=== PATIENT | female | born 1965 | race American Indian/Alaskan Native ===

== ENCOUNTER → 2017-09-17 | Day surgery (SDC) | payer MEDICARE, OTHER ==
[2014-11-13 10:38] VITALS: BMI 25.8
[~2017-09-17] MED LIST: Bacitracin Ointment 30 GM TUBE ONE; Bupivacaine 0.5% Inj(30mL) ONE; Dexamethasone 4 mg/1 ml ONE; EPINEPHrine 1:1000 Nasal Sol(30mL) ONE; Lactated Ringer's 1,000 ML IV ONE; Lidocaine 1% Inj (20ml) ONE; MethylPREDNISolone Depo 40 mg/ml Inj ONE; Midazolam 2 MG/2 ML VIAL ONE; Morphine 1 mg/ml preservative-free Inj(Duramorph) ONE; Oxycodone/Acetaminophen 5/325 mg Tab PO PRN; Propofol 10 mg/ml Inj (20 ML) ONE; Sevoflurane - Inhalation Anesthetic Liq (250 ml) ONE
--- NOTE | 2017-09-17 06:38 | ED PDOC ---
Lower Extremity Pain/Injury Time Seen by Provider: 09/17/17 06:00 Chief Complaint (Nursing): Lower Extremity Problem/Injury Chief Complaint (Provider): Lower Extremity Problem History Per: Patient History/Exam Limitations: no limitations Onset/Duration Of Symptoms: Persistent Current Symptoms Are (Timing): Still Present Additional Complaint(s): 51 year old female presents to ED with complaints of left knee pain and has a past medical history of multiple sclerosis and prior knee surgeries. Patient states her left knee is "messed up" secondary to ligament damage. Notes increasing difficulty with left knee. PCP: JONAS Past Medical History Reviewed: Historical Data, Nursing Documentation, Vital Signs Vital Signs: Last Vital Signs Temp 98.4 F 09/17/17 06:13 Pulse 121 H 09/17/17 06:13 Resp 18 09/17/17 06:13 BP 119/89 09/17/17 06:13 Pulse Ox 96 09/17/17 06:13 - Medical History PMH: Multiple Sclerosis Denies: Chronic Kidney Disease - Surgical History Surgical History: Appendectomy Other surgeries: knee surgeries - Family History Family History: States: Unknown Family Hx - Immunization History Hx Tetanus Toxoid Vaccination: No Hx Influenza Vaccination: No Hx Pneumococcal Vaccination: No - Home Medications Home Medications: Ambulatory Orders Medication Instructions Recorded Esomeprazole Magnesium [Nexium] 40 mg PO DAILY 10/01/13 Amitriptyline HCl [Amitriptyline 150 mg PO DAILY 11/16/14 HCl] DULoxetine [Cymbalta] 60 mg PO DAILY 09/17/17 Gabapentin [Neurontin] 900 mg PO DAILY 09/17/17 Interferon Beta-1A/Albumin [Rebif 22 mcg SUBCUT WMHS 09/17/17 22 Mcg/0.5 ml Syringe] oxyCODONE/Acetaminophen [Percocet 1 ea PO Q4H PRN #30 tab 09/17/17 5/325 mg Tab] - Allergies Allergies/Adverse Reactions: Allergies Allergy/AdvReac Type Severity Reaction Status Date / Time No Known Allergies Allergy Verified 09/17/17 06:11 Review of Systems ROS Statement: Except As Marked, All Systems Reviewed And Found Negative Musculoskeletal: Positive for: Leg Pain (left knee pain) Physical Exam - Reviewed Nursing Documentation Reviewed: Yes Vital Signs Reviewed: Yes - Physical Exam Appears: Positive for: Non-toxic, No Acute Distress Skin: Positive for: Normal Color, Warm, Dry Respiratory: Negative for: Respiratory Distress Extremity: Positive for: Normal ROM (patient is able to ambulate- but she states she has pain when she does. ). Negative for: Tenderness, Deformity, Swelling Neurologic/Psych: Negative for: Motor/Sensory Deficits - Laboratory Results Result Diagrams: 09/17/17 06:56 09/17/17 06:56 - ECG O2 Sat by Pulse Oximetry: 96 (RA) Pulse Ox Interpretation: Normal Medical Decision Making Medical Decision Makin Initial impression: left knee pain Initial plan: * T&S * EKG * Labs * PTT * CXR * Urine C&S * UA [id number] Boucher regarding patient. 07 Patient will be signed out to Dr. Ridley pending work up. Scribe Attestation: Documented by Jordyn Cordova acting as a scribe for Ainsley Marquez MD. Scribe Attestation: All medical record entries made by the Scribe were at my direction and personally dictated by me. I have reviewed the chart and agree that the record accurately reflects my personal performance of the history, physical exam, medical decision making, and the department course for this patient. I have also personally directed, reviewed, and agree with the discharge instructions and disposition. Disposition - Clinical Impression Clinical Impression: Knee internal derangement - Patient ED Disposition Is Patient to be Admitted: Transfer of Care - Disposition Disposition: Transfer of Care Disposition Time: 07:00 Condition: FAIR Patient Signed Over To: Berto Ridley III Handoff Comments: pending work up
[2017-09-17 07:04] LABS: BASO % 0.6 % (0.0-2.0); EOS # 0.3 K/uL (0.0-0.7); EOS % 4.8 % (0.0-4.0); HEMOGLOBIN 13.2 g/dL (12.0-16.0); LYMPH # 2.2 K/uL (1.0-4.3); LYMPH % 31.5 % (20.0-40.0); MEAN CELL VOLUME 94.2 fl (81.0-99.0); MEAN CORPUSCULAR HGB CONC 33.9 g/dL (33.0-37.0); MEAN PLATELET VOLUME 8.8 fl (7.2-11.7); MONO # 0.6 K/uL (0.0-0.8); MONO % 8.2 % (0.0-10.0); NEUT # 3.9 K/uL (1.8-7.0); NEUT % 54.9 % (50.0-75.0); NRBC % 0.2 % (0.0-0.0); RBC 4.12 Mil/uL (3.80-5.20); RED CELL DISTRIBUTION WIDTH 13.7 % (11.5-14.5)
[2017-09-17 07:17] LABS: PROTHROMBIN TIME 11.6 Seconds (9.8-13.1)
[2017-09-17 07:22] LABS: ALB/GLOB RATIO 1.3 (1.0-2.1); ALBUMIN 4.6 g/dL (3.5-5.0); ALT/SGPT 35 U/L (9-52); AST/SGOT 29 U/L (14-36); BLOOD UREA NITROGEN 8 mg/dl (7-17); CALCIUM 9.6 mg/dL (8.4-10.2); GFR AFRICAN-AMERICAN > 60; GFR NON-AFRICAN AMERICAN > 60
--- NOTE | 2017-09-17 07:47 | CP.PCM.HP ---
History of Present Illness - History of Present Illness History of Present Illness: 51F complains of intractable left knee pain that is worsening, presents to ER. Patient is known to Dr. Boucher. No recent trauma or falls. Patient with recent right knee arthroscopy, and left knee arthroscopy 20 years ago. PMH: MS PSH: as above, appendectomy NKDA Present on Admission - Present on Admission Any Indicators Present on Admission: No Review of Systems - Review of Systems Review of Systems: no fever/chills Past Patient History - Past Medical History & Family History Past Medical History?: Yes Past Family History: Reviewed and not pertinent - Past Social History Smoking Status: Light Smoker < 10 Cigarettes Daily - CARDIAC Hx Cardiac Disorders: No - PULMONARY Hx Respiratory Disorders: No - NEUROLOGICAL Hx Multiple Sclerosis: Yes - HEENT Hx HEENT Problems: No - RENAL Hx Chronic Kidney Disease: No - ENDOCRINE/METABOLIC Hx Endocrine Disorders: No - HEMATOLOGICAL/ONCOLOGICAL Hx Blood Disorders: No - INTEGUMENTARY Hx Dermatological Problems: No - MUSCULOSKELETAL/RHEUMATOLOGICAL Hx Musculoskeletal Disorders: Yes Hx Falls: No Other/Comment: MULTIPLE SCLEROSIS - GASTROINTESTINAL Hx Gastrointestinal Disorders: Yes Other/Comment: HEARTBURN - GENITOURINARY/GYNECOLOGICAL Hx Genitourinary Disorders: No - PSYCHIATRIC Hx Psychophysiologic Disorder: No Hx Emotional Abuse: No Hx Physical Abuse: No Hx Substance Use: No - SURGICAL HISTORY Hx Appendectomy: Yes - ANESTHESIA Hx Anesthesia: Yes Hx Anesthesia Reactions: No Hx Malignant Hyperthermia: No Meds Home Medications: Home Medication List Medication Instructions Recorded Confirmed Type oxyCODONE/Acetaminophen [Percocet 1 ea PO Q4H PRN #30 tab 09/17/17 Rx 5/325 mg Tab] Allergies/Adverse Reactions: Allergies Allergy/AdvReac Type Severity Reaction Status Date / Time No Known Allergies Allergy Verified 09/17/17 06:11 Physical Exam - Constitutional Appears: Well, No Acute Distress - Head Exam Head Exam: ATRAUMATIC - Respiratory Exam Respiratory Exam: NORMAL BREATHING PATTERN - Expanded Lower Extremities Exam Left Knee exam: effusion, tenderness (+DP/PT pulses, calves soft NT neg homans, no lax varus/valgus) Ankle exam: FULL ROM, NORMAL INSPECTION - Neurological Exam Neurological exam: Alert, Oriented x3 - Psychiatric Exam Psychiatric exam: Normal Affect, Normal Mood - Skin Skin Exam: Dry, Intact, Normal Color, Warm Results - Vital Signs Recent Vital Signs: Last Vital Signs Temp 98.4 F 09/17/17 06:13 Pulse 121 H 09/17/17 06:13 Resp 18 09/17/17 06:13 BP 119/89 09/17/17 06:13 Pulse Ox 96 09/17/17 07:02 - Labs Result Diagrams: 09/17/17 06:56 09/17/17 06:56 Labs: Laboratory Results - last 24 hr 09/17/17 09/17/17 09/17/17 06:56 06:56 06:56 WBC 7.0 RBC 4.12 Hgb 13.2 Hct 38.9 MCV 94.2 MCH 32.0 H MCHC 33.9 RDW 13.7 Plt Count 240 MPV 8.8 Neut % (Auto) 54.9 Lymph % (Auto) 31.5 Mccreary % (Auto) 8.2 Eos % (Auto) 4.8 H Baso % (Auto) 0.6 Neut # (Auto) 3.9 Lymph # (Auto) 2.2 Mccreary # (Auto) 0.6 Eos # (Auto) 0.3 Baso # (Auto) 0.0 PT INR Sodium 142 Potassium 3.4 L Chloride 105 Carbon Dioxide 26 Anion Gap 14 BUN 8 Creatinine 0.7 Est GFR ( Amer) > 60 Est GFR (Non-Af Amer) > 60 Random Glucose 92 Calcium 9.6 Total Bilirubin 0.6 AST 29 ALT 35 Alkaline Phosphatase 101 Total Protein 8.3 H Albumin 4.6 Globulin 3.7 Albumin/Globulin Ratio 1.3 Alcohol, Quantitative < 10 BBK History Checked Patient has bt 09/17/17 06:56 WBC RBC Hgb Hct MCV MCH MCHC RDW Plt Count MPV Neut % (Auto) Lymph % (Auto) Mccreary % (Auto) Eos % (Auto) Baso % (Auto) Neut # (Auto) Lymph # (Auto) Mccreary # (Auto) Eos # (Auto) Baso # (Auto) PT 11.6 INR 1.0 Sodium Potassium Chloride Carbon Dioxide Anion Gap BUN Creatinine Est GFR ( Amer) Est GFR (Non-Af Amer) Random Glucose Calcium Total Bilirubin AST ALT Alkaline Phosphatase Total Protein Albumin Globulin Albumin/Globulin Ratio Alcohol, Quantitative BBK History Checked Assessment & Plan (1) Intractable neuropathic pain of left knee Assessment and Plan: NPO case d/w Dr. Boucher, plan left knee arthroscopy risks/benefits/alt of left knee arthroscopy explained by Dr. Boucher, patient verbalized understanding and consents to procedure labs reviewed [employer] patient report reviewed, no CDS. Patient counseled on the risks of addiction, physical or psychological dependence, and overdose associated with opioid drugs and the danger of taking opioid drugs with alcohol and other central nervous system depressants, and cautioned patient on storage and disposal. Status: Acute (2) Left knee pain Status: Acute
--- NOTE | 2017-09-17 09:22 | RAD ---
HISTORY: admission COMPARISON: No prior. FINDINGS: LUNGS: No active pulmonary disease. PLEURA: No significant pleural effusion identified, no pneumothorax apparent. CARDIOVASCULAR: Heart appears enlarged. OSSEOUS STRUCTURES: No significant abnormalities. VISUALIZED UPPER ABDOMEN: Normal. OTHER FINDINGS: None. IMPRESSION: No active disease.
--- NOTE | 2017-09-17 09:43 | PCM.SURG1 ---
Surgeon's Initial Post Op Note - Surgeon's Notes Surgeon: [employer] Designer: TOM Bell Type of Anesthesia: General Endo Anesthesia Administered By: DR Santiago Villatoro Pre-Operative Diagnosis: primary O/A L knee/tear meniscus L knee Operative Findings: chondral fx/femoral trochlea. tricompartmental synovitis. tear medial/tear lateral meniscus Post-Operative Diagnosis: as above Operation Performed: arthroscopic abrasion arthropklasty/microfracture femoral trochle. arthroscopic partial tricompartmental synovectomy. arthroscopic partial medial/lateral meniscectomy. intraraticular injection. applx knee immobilizer Specimen/Specimens Removed: cartilage/synovium Estimated Blood Loss: EBL {In ML}: 5 Blood Products Given: N/A Drains Used: No Drains Post-Op Condition: Good Date of Surgery/Procedure: 09/17/17 Time of Surgery/Procedure: 08:50 (time in ,room 7:55/anreatsheisa indcution time )
[2017-09-17 10:06] VITALS: RESP 20
[2017-09-17 10:38] VITALS: TEMP 97.4
[2017-09-17 11:04] VITALS: BP 106/75; PULSE 68
--- NOTE | 2017-09-17 13:24 | CARD ---
APPROVED REPORT EKG Measurement Heart [id number] <Conclusion> Normal sinus rhythm Possible Left atrial enlargement Left axis deviation Right bundle branch block Abnormal ECG
--- NOTE | 2017-09-19 09:20 | OP ---
PROCEDURE DATE: 09/17/2017 LOCATION: [facility]. PREOPERATIVE DIAGNOSES: 1. Internal derangement of the left knee. 2. Chondral fracture of the femoral trochlea. 3. Tricompartmental synovitis. 4. Tear medial meniscus and tear lateral meniscus. POSTOPERATIVE DIAGNOSES: 1. Internal derangement of the left knee. 2. Chondral fracture of the femoral trochlea. 3. Tricompartmental synovitis. 4. Tear medial meniscus and tear lateral meniscus. OPERATION PERFORMED: 1. Abrasion arthroplasty (microfracture femoral trochlea). 2. Arthroscopic partial tricompartmental synovectomy. 3. Arthroscopic partial medial and lateral meniscectomy. 4. Intra-articular injection. 5. Application of knee immobilizer. BLOOD LOSS: 5 mL. SPECIMENS: Cartilage and synovium. COMPLICATIONS: No complications. DRAINS: No drains. INCISION TIME: 8:50 TIME IN THE ROOM: 7:55 ANESTHESIA: General endotracheal anesthesia, Dr. Santiago Villatoro. OPERATIVE INDICATIONS: The patient is a 50-year-old woman who presents to the Emergency Room with essentially a locked knee. The patient was unable to bear weight, had severe pain and restricted range of motion of the left knee. The patient had been treating this on her own conservatively with activity modification and anti-inflammatory medication. The patient is evaluated in the ER and is seen in consultation and admitted. Since the knee is locked and there is terrific amount of pain, the patient was taken to surgery. MRI examination had been accomplished in the past. Pros, cons, risks and benefits of surgical arthroscopy were discussed. Possibility of mechanical failure, infection, thromboembolic disease, secondary or tertiary surgery was discussed. The patient can no longer withstand the discomfort and presented to the Emergency Room with inability to ambulate, swelling, pain and essentially a locked knee. Possibility of later secondary arthroplasty surgery is discussed. Concept of necessity of weight loss was discussed. Pros, cons, risks and benefits were discussed at length. OPERATIVE PROCEDURE: After having obtained informed consent in the above fashion, after the satisfactory induction of general endotracheal anesthesia by Dr. Santiago Villatoro, after having identified side, site and procedure and critical pause/time-out after the satisfactory attainment of informed consent in the above fashion, after having identified side, site and procedure and critical pause/time-out, after the satisfactory induction of the anesthetic, the patient identified as Berto Banks in the supine position with all bony prominences well padded. The left lower extremity was prepped and free draped in usual fashion for lower extremity surgery. Tourniquet had been applied but not inflated. Biomonde knee parekh was employed as well. After exsanguinating the limb using a 6-inch Esmarch bandage, tourniquet, which had been applied, was inflated to 350 mmHg. The joint was insufflated with 10 mL of 1% lidocaine without epinephrine. Using #11 blade, followed by spreading, followed by introduction of blunt trocar, the arthroscope was introduced. Examination of the joint commenced. There was found to be rather severe tricompartmental synovitis. Triangulation was accomplished using 18-gauge spinal needle followed by #11 blade followed by spreading, followed by introduction of blunt trocar with the arthroscope anterolaterally. The straight hemostat was placed anteromedially. A careful partial tricompartmental synovectomy was accomplished both to improve visualization and to ablate irritative tissue. With the arthroscope anterolaterally, a careful partial tricompartmental synovectomy was completed. Bleeding points were controlled with the endoscopic wand. With the arthroscope anterolaterally, careful partial tricompartmental synovectomy was completed. Bleeding points were controlled with the arthroscope now anterolaterally with the surgeon exerting a general valgus stress, taking great care not to injure the medial collateral ligament. There was found to be a complex tear of the medial meniscus. This was probed. Please refer to the video photographs. With the arthroscope anterolaterally, having performed a careful partial tricompartmental synovectomy, the deep posterior horn of the medial meniscus was found to be torn. A partial medial meniscectomy was accomplished using a combination of the arthroscopic shaver, the upbiting basket punch and left biting basket forceps, the arthroscope was placed anteromedially and the deep posterior horn was excavated again with the surgeon exerting a valgus stress with the radiology practitioner assistant exerting pressure from the posterior capsule. A careful excavation of the posterior horn of the medial meniscus extended in the mid aspect was accomplished. The inner free edge was smoothed using the ArthroCare wand. The entry into the anterior cruciate ligament was found to be intact. With the arthroscope anterolaterally with the knee in figure four position, there was found to be a tear of the inner free edge of the lateral meniscus. Using a combination of straight biting basket forceps and the side biting basket forceps, a partial lateral meniscectomy is accomplished. With the arthroscope anterolaterally, with the knee in figure four position, a partial lateral meniscectomy is accomplished. The inner free edge is smoothed using ArthroCare wand. With the arthroscope, the anterior cruciate ligament was found to be intact. There was found to be evidence of chondral damage full-thickness in the area of the trochlea. With the arthroscope placed anterolaterally with the knee approximately 30 degrees short of full extension, mechanical chondroplasty was accomplished using arthroscopic shaver. This having been accomplished, the arthroscopic pick was used to perform a microfracture in a honeycomb type fashion. Fragments are removed using the 3.4 mm Listia suction punch. The wound was thoroughly irrigated. Partial tricompartmental synovectomy is completed. Bleeding points were controlled with the wand and closures in layers with interrupted Vicryl and nylon. Intra-articular injection was offered of Marcaine, Duramorph, and Depo-Medrol. Bienvenido Powell compression dressing and knee immobilizer were applied. The patient is stable in the recovery room. Rene Boucher MD
[2017-09-19 15:28] VITALS: O2SAT 96
== END | disposition home or self-care (01) ==
LOC: H.ER 05:46 → H.ERHOLD 07:25 → UNDOADMOB 07:25 → H.SDS 15:13 → H.SDSUNIT 15:13
PROVIDERS: ATTEND Internal Medicine
DX: M23.92 Unspecified internal derangement of left knee (principal); G35 Multiple sclerosis; F17.210 Nicotine dependence, cigarettes, uncomplicated; M65.862 Other synovitis and tenosynovitis, left lower leg
CPT/HCPCS: 29881; 71045; 80053; 85025; 85610; 86850; 86900; 88305; 93005; 97161; 99284; G0480; G8978; G8979; G8980; J0171; J0690; J1030; J1100; J2001; J2250; J2270; J2405; J2704; J3010; J7030; J7120